=== PATIENT | male | born 1980 | race Caucasian/White ===

== ENCOUNTER 2022-09-09 23:47 | Emergency (ER) | payer MEDICAID ==
[~2022-09-09] VITALS: Ht 177.8 cm; Wt 99.8 kg
--- NOTE | 2022-09-09 23:55 | NUR ---
MD MURRAY EXAMINING PT.
--- NOTE | 2022-09-09 23:55 | NUR ---
Patient triaged and placed in waiting room. VSS and patient appears in no acute distress at this time. Accompanied by self, awaiting available bed, and MD notified of need for MSE.
--- NOTE | 2022-09-10 00:23 | NUR ---
Triage report endorsed to ABRAM Khan.
[2022-09-10 00:36] VITALS: BP_SYST 124
--- NOTE | 2022-09-10 00:41 | NUR ---
Pt taken to CT for imaging.
--- NOTE | 2022-09-10 01:05 | NUR ---
ER Dr Landers at bedside examining patient.
--- NOTE | 2022-09-10 01:06 | NUR ---
BP 125/60 (90), HR75, RR17, O2SAT 96 %RA, TEMP 98.1
[2022-09-10 04:11] VITALS: BP_SYST 125
== END 2022-09-10 04:22 | disposition home or self-care (01) ==
LOC: SED 23:47
DX: R29.818 Other symptoms and signs involving the nervous system (principal); R42 Dizziness and giddiness; Z79.899 Other long term (current) drug therapy
CPT/HCPCS: 70450-TC; 76376; 99284